=== PATIENT | male | born 1985 | race Caucasian/White ===

== ENCOUNTER 2024-09-05 12:39 | Emergency (ER) | payer OTHER ==
[~2024-09-05] VITALS: Ht 182.9 cm; Wt 97.0 kg
[2024-09-05 13:11] LABS: BASOPHILS 0.2 % (0-2); EOSINOPHILS 0.2 % (0-6); HEMOGLOBIN 15.8 g/dL (12.0-18.0); LYMPHOCYTES 9.6 % (24-44); MCH 34.1 (27-36); MCV 97.5 fl (81-99); MONOCYTES 4.7 % (0-12); NEUTROPHILS 85.3 % (39-80); PLATELET COUNT 267 K/uL (140-440); RBC 4.62 M/ul (4.3-5.7); RDW 13.2 (10.5-15.0)
[2024-09-05 13:48] LABS: ALBUMIN 4.1 g/dL (3.4-5.0); ALBUMIN/GLOBULIN RATIO 1.41 (1.1-2.4); BILIRUBIN, TOTAL 0.8 mg/dL (0.2-1.0); BUN/CREATININE RATIO 13.46 (6.0-28.6); CALCIUM 8.9 mg/dL (8.5-10.1); CREATININE, SERUM 1.04 mg/dL (0.70-1.30); MAGNESIUM 1.7 mg/dL (1.8-2.4)
[2024-09-05 15:28] LABS: BILIRUBIN, URINE NEGATIVE (negative); BLOOD/HGB, URINE LARGE (Negative); KETONE, URINE NEGATIVE (Negative); LEUK ESTERASE, URINE NEGATIVE (negative); NITRITE, URINE NEGATIVE (negative); PH, URINE 7.5 (5-7)
[2024-09-05 15:34] LABS: BACTERIA, URINE NONE SEEN /hpf (negative); CASTS, URINE NONE SEEN \\lpf; COLLECTION TYPE, URINE CLEAN CATCH; CRYSTALS, URINE NONE SEEN (0-1+); EPITHELIAL CELLS, URINE SQUAMOUS 1+ /lpf (0-1+); RED BLOOD CELLS, URINE >50 /hpf (0-5); REFLEX CULTURE, URINE No (No)
[2024-09-05] MEDS ORDERED: CEFTRIAXONE SOD 500 MG VIAL IM ONE (17:45)
[2024-09-05 18:03] VITALS: BP 141/87
[2024-09-05 18:10] LABS: N. GONORRRHOEAE BY PCR NOT DETECTED (NOT DETECT)
[2024-09-05] MEDS ORDERED: LEVOFLOXACIN750 MG PO (18:53)
--- NOTE | 2024-09-06 21:29 | EKG ---
[facility] [address] [facility] [place] [employer] [place] [address] Signed Normal sinus rhythm Normal ECG No previous ECGs available Confirmed by Ulises Gaines DO ([id number]) on 09/06/2024 9:29:04 PM Electronically Signed By: ULISES GAINES DO 09/06/242128 PATIENT NAME: ANA COVARRUBIAS Electrocardiogram DATE OF : 83 PHYSICIAN: ULISES GAINES DO REPORT #: [id number] REPORT IS CONFIDENTIAL AND NOT TO BE RELEASED WITHOUT AUTHORIZATION
== END 2024-09-05 18:03 | disposition home or self-care (01) ==
LOC: ED 12:39
PROVIDERS: Emergency Medicine
DX: N39.0 Urinary tract infection, site not specified (principal); R31.9 Hematuria, unspecified; R55 Syncope and collapse; F17.210 Nicotine dependence, cigarettes, uncomplicated
CPT/HCPCS: 36415; 80053; 81001; 83735; 84484; 85025; 93005; 93010; 96372; 99284; J0696